=== PATIENT | female | born 1990 | race African-American/Black ===

== ENCOUNTER 2017-03-09 09:48 | Emergency (ER) | payer OTHER ==
--- NOTE | ~2017-03-09 | CT4 ---
[facility] A Service of [facility] RADIOLOGY TEXT RESULTS PATIENT: BRIANNA BLUE LOCATION: [place] : [birth year] UNIT #: [id number] AGE: [address]: Lulu Mcgraw APRN SEX: F ORDER DR: [id number] [id number] [facility]. [place], [place] [address] [id number] E MR#: [id number] Acc #: [id number] NAME: BRIANNA BLUE : 1990 SEX: F STUDY DATE/TIME: 03/09/2017 15:03 UNIT: [facility] ROOM: STUDY DESCRIPTION: CT Abd and Pelv Wo Cont Attending Physician: Lulu Mcgraw A.P.R.N. Ordering Physician: Ed Tomas Ortiz M.D. Primary Care Physician: No Primary Care Physician MEDICAL IMAGING REPORT This report is preliminary unless electronic signature is present EXAM CT abdomen and pelvis without contrast. Date: 03/09/2017. HISTORY Mid epigastric pain with nausea, vomiting and diarrhea since 03/08/2017. COMPARISON None. PROCEDURE 5 mm noncontrast axial images through the abdomen and pelvis. Enteric contrast was not administered. Sagittal and coronal reformed images were obtained. This CT exam was performed with one or more of the following radiation dose reduction techniques: automatic exposure control, adjustment of mA and/or kV according to patient size, and iterative reconstruction. FINDINGS Lung bases are clear. 1.2 cm gallstone present without pericholecystic inflammation or biliary ductal dilation. The noncontrast appearance of the liver, spleen, pancreas, adrenals and kidneys is within normal limits. No urinary tract stone or hydronephrosis is identified. The appendix is normal. Limited evaluation of the bowel due to lack of contrast but no focal bowel inflammation is seen. Pelvis findings: Urinary bladder, uterus and rectum are normal. No pelvic adenopathy or free fluid is identified. No acute osseous abnormalities. [facility] A Service of [facility] RADIOLOGY TEXT RESULTS PATIENT: BRIANNA BLUE LOCATION: [place] : [birth year] UNIT #: [id number] AGE: [address]: Lulu Mcgraw APRN SEX: F ORDER DR: IMPRESSION 1. No acute findings in the abdomen or pelvis. 2. Uncomplicated cholelithiasis. 3. No urinary tract stone or hydronephrosis. 4. Normal appendix. Dictated by... Bernadette Suggs M.D. THIS IS AN ELECTRONICALLY VERIFIED REPORT Bernadette Suggs M.D. at 03/10/2017 8:36 AM LLH/gz TD: 03/09/2017 16:25 JOB #: [id number] MEDICAL IMAGING REPORT Page 1 of 1 COPY
[~2017-03-09 09:48] MED LIST: BACTRIM DS TABL1 TA1 PO; BENADRYL25 MG PO; LACRI-LUBE NP OI1 UD OD; PREDNISONE5 M1 PO; ULTRAM PO; VALTREX PO; ZANTAC PO; ZANTAC150 MG PO
[2017-03-09 10:45] LABS: BASOPHIL% 0.4 % (0-2.5); EOSINOPHIL% 0.2 % (0.0-7.0); HEMATOCRIT 39.3 % (35.0-45.0); HEMOGLOBIN 12.5 gm/dL (12.0-16.0); LYMPHOCYTE# 1.4 X10e3 (1.0-3.5); LYMPHOCYTE% 15.5 % (17.0-45.0); MEAN CORPUSCULAR HEMOGLOBIN 27.5 PG (28-34); MEAN CORPUSCULAR HGB CONC 31.9 g/dL (30-36); MEAN PLATELET VOLUME 8.6 FL (6.5-11.5); MONOCYTE# 0.4 X10e3 (0-1.0); MONOCYTE% 4.8 % (3.0-12.0); NEUTROPHIL# 7.1 X10e3 (1.5-7.1); NEUTROPHIL% 79.1 % (40-75); PLATELET COUNT 268 X10e3 (140-420); RED BLOOD COUNT 4.57 X10e (3.90-5.30); RED CELL DISTRIBUTION WIDTH 14.1 % (11.0-15.5)
[2017-03-09 10:49] LABS: DIFF IND NO
[2017-03-09 11:17] LABS: ALBUMIN SERUM 3.6 g/dL (3.5-5.0); BILIRUBIN, DIRECT 0.1 mg/dL (0.0-0.2); BILIRUBIN,INDIRECT 0.1 mg/dL (0.0-0.9); BILIRUBIN,TOTAL 0.2 mg/dL (0.2-2.0); BUN/CREATININE RATIO 11.66; CALCIUM SERUM 8.7 mg/dL (8.4-10.2); CREATININE SERUM 0.6 mg/dL (0.6-1.4); GLOM FILT RATE Estimated 144.8 mL/min (>60); POTASSIUM 3.7 mmol/L (3.5-5.1); PROTEIN TOTAL SERUM 7.6 g/dL (6.0-8.3)
[2017-03-09 12:18] LABS: URINE SOURCE CLEAN CATCH
[2017-03-09 12:43] LABS: URINE APPEARANCE CLEAR; URINE BILIRUBIN NEG (NEG); URINE BLOOD NEG (NEG); URINE COLOR YELLOW; URINE GLUCOSE NEG (NEG); URINE KETONE TRACE (NEG); URINE LEUKOCYTE ESTERASE NEG (NEG); URINE NITRATE NEG (NEG); URINE PH 7.5 (5-8); URINE PROTEIN 1+ (NEG); URINE SPECIFIC GRAVITY 1.029 (1.003-1.035)
[2017-03-09 12:47] LABS: URINE BACTERIA AUWI NEG (NEGATIVE); URINE SQUAMOUS EPITHELIAL CELL OCC /[HPF]; UWBCS1 AUWI 0-2 (0-5)
[2017-03-09 12:48] LABS: CULTURE INDICATED? NO
== END 2017-03-09 16:50 | disposition home or self-care (01) ==
LOC: CED 09:48
PROVIDERS: Nurse Practitioner
DX: K80.80 Other cholelithiasis without obstruction (principal); R19.7 Diarrhea, unspecified; R42 Dizziness and giddiness; I10 Essential (primary) hypertension; Z79.899 Other long term (current) drug therapy
CPT/HCPCS: 36415; 74176; 80048; 80076; 81003; 82150; 83690; 84703; 85025; 96361; 96374; 96375; 96376; 99284; J2405

== ENCOUNTER 2017-03-10 22:43 | Emergency (ER) | payer OTHER ==
--- NOTE | ~2017-03-10 | CR63 ---
[facility] A Service of [facility] RADIOLOGY TEXT RESULTS PATIENT: BRIANNA BLUE LOCATION: [facility] : [birth year] UNIT #: [id number] AGE: [address]: Zacarias Price DO SEX: F ORDER DR: [id number] [facility] [address] [place], [place] [address] [id number] E MR#: [id number] Acc #: [id number] NAME: BRIANNA BLUE : 1990 SEX: F STUDY DATE/TIME: 03/11/2017 0:42 UNIT: [facility] ROOM: STUDY DESCRIPTION: CR Chest 2 View Attending Physician: Zacarias Price D.O. Ordering Physician: Zacarias Price D.O. MEDICAL IMAGING REPORT This report is preliminary unless electronic signature is present EXAM Chest x-ray, 03/11. INDICATIONS Headache, vomiting, dizziness, and blurred vision for the last 2 days. COMPARISON 09/21/2016 FINDINGS PA and lateral examination of the chest upright shows a good expansion of the parenchyma with a normal distribution of the pulmonary vascularity. There is no indication of congestion, effusion, infiltrate, tumor, or nodular density. The pleural reflections and diaphragmatic contours are normal. The cardiac silhouette and mediastinal anatomy is within normal limits. IMPRESSION Normal chest. Dictated by... Shalom Hope Jr., M.D. THIS IS AN ELECTRONICALLY VERIFIED REPORT Shalom Hoep Jr., M.D. at 03/11/2017 11:25 AM LIZETH/sultana TD: 03/11/2017 09:28 JOB #: [id number] MEDICAL IMAGING REPORT Page 1 of 1 COPY
--- NOTE | ~2017-03-10 | MR18 ---
[facility] A Service of [facility] RADIOLOGY TEXT RESULTS PATIENT: BRIANNA BLUE LOCATION: [place] : [birth year] UNIT #: [id number] AGE: [address]: Zacarias Price DO SEX: F ORDER DR: [id number] [facility] [address] [place], [place] [address] [id number] E MR#: [id number] Acc #: [id number] NAME: BRIANNA BLUE : 1990 SEX: F STUDY DATE/TIME: 03/11/2017 2:15 UNIT: [facility] ROOM: STUDY DESCRIPTION: MR Brain Wo Contrast Attending Physician: Zacarias Price D.O. Ordering Physician: Zacarias Price D.O. MRI CENTER REPORT This report is preliminary unless electronic signature is present. EXAM MR brain, 03/11 INDICATION Dizziness and weakness that started Tuesday of this week with blurred vision. History of Romero's palsy. TECHNIQUE Multisequence multiplanar imaging was performed through the brain without contrast in a high field strength magnet. COMPARISON 07/07/2016 FINDINGS Diffusion images show no evidence of acute or subacute infarct. Ventricular size and configuration remain normal. Signal in the white matter is normal. No masses are identified on this noncontrast study. No evidence of hemorrhage. Major intracranial flow voids are maintained. Craniovertebral junction is normal. IMPRESSION Normal noncontrast brain MRI. No change from prior. Dictated by... Shalom Hope Jr., M.D. THIS IS AN ELECTRONICALLY VERIFIED REPORT Shalom Hope Jr., M.D. at 03/11/2017 11:28 AM LIZETH/felisha TD: 03/11/2017 10:02 JOB #: [id number] [facility] A Service of [facility] RADIOLOGY TEXT RESULTS PATIENT: BRIANNA BLUE LOCATION: [place] : [birth year] UNIT #: [id number] AGE: [address]: Zacarias Price DO SEX: F ORDER DR: MRI CENTER REPORT Page 1 of 1 COPY
--- NOTE | ~2017-03-10 | MR122 ---
[facility] A Service of [facility] RADIOLOGY TEXT RESULTS PATIENT: BRIANNA BLUE LOCATION: [place] : [birth year] UNIT #: [id number] AGE: [address]: Zacarias Price DO SEX: F ORDER DR: [id number] [facility] [address] [place], [place] [address] [id number] E MR#: [id number] Acc #: [id number] NAME: BRIANNA BLUE : 1990 SEX: F STUDY DATE/TIME: 03/11/2017 2:41 UNIT: [facility] ROOM: STUDY DESCRIPTION: MR MRA Head Wo Contrast Attending Physician: Zacarias Price D.O. Ordering Physician: Zacarias Price D.O. MRI CENTER REPORT This report is preliminary unless electronic signature is present. EXAM MRA brain, 03/11 HISTORY Dizziness and weakness that started Tuesday of this week with some blurred vision. History of Romero's palsy. TECHNIQUE Noncontrast 3-D rqeo-ks-kasfrs images were obtained through the brain. MIP reconstructed images of the arterial system were obtained. COMPARISON CTA of the brain, 07/07/2016 FINDINGS Major vessels of the [place] are widely patent. There is no evidence of vessel stenosis or vessel cutoff. No aneurysm is identified. There is no vascular malformation. IMPRESSION Negative intracranial MRA. Dictated by... Shalom Hope Jr., M.D. THIS IS AN ELECTRONICALLY VERIFIED REPORT Shalom Hope Jr., M.D. at 03/11/2017 11:28 AM LIZETH/felisha TD: 03/11/2017 10:04 JOB #: [id number] [facility] A Service of [facility] RADIOLOGY TEXT RESULTS PATIENT: BRIANNA BLUE LOCATION: [place] : [birth year] UNIT #: [id number] AGE: [address]: Hottman,Zacarias M DO SEX: F ORDER DR: MRI CENTER REPORT Page 1 of 1 COPY
--- NOTE | ~2017-03-10 | MR133 ---
[facility] A Service of [facility] RADIOLOGY TEXT RESULTS PATIENT: BRIANNA BLUE LOCATION: [place] : [birth year] UNIT #: [id number] AGE: [address]: Zacarias Price DO SEX: F ORDER DR: [id number] [facility] [address] [place], [place] [address] [id number] E MR#: [id number] Acc #: [id number] NAME: BRIANNA BLUE : 1990 SEX: F STUDY DATE/TIME: 03/11/2017 2:49 UNIT: [facility] ROOM: STUDY DESCRIPTION: MR MRA Neck WWo Contrast Attending Physician: Zacarias Price D.O. Ordering Physician: Zacarias Price D.O. MRI CENTER REPORT This report is preliminary unless electronic signature is present. EXAM MRA of the neck with without contrast 03/11 INDICATIONS Dizziness and weakness since Tuesday of this week. History of [place] palsy. TECHNIQUE Ilyi-uj-yaefdn imaging was obtained through the neck before and after the IV administration of 20 mL of MultiHance contrast. Comparison made with the neck CTA from 07/07/2016. FINDINGS The vertebral arteries are codominant and widely patent. No evidence of plaque disease in the carotid bifurcations. No stenosis in the neck by NASCET criteria. No dissection. The great vessel origins from the arch are unremarkable. IMPRESSION Normal MRA of the neck. Dictated by... Shalom Hope Jr., M.D. THIS IS AN ELECTRONICALLY VERIFIED REPORT Shalom Hope Jr., M.D. at 03/11/2017 11:28 AM SIMONEK/debbie TD: 03/11/2017 10:04 JOB #: [id number] [facility] A Service [facility] RADIOLOGY TEXT RESULTS PATIENT: BRIANNA BLUE LOCATION: [place] : [birth year] UNIT #: [id number] AGE: [address]: Zacarias Price DO SEX: F ORDER DR: MRI CENTER REPORT Page 1 of 1 COPY
[2017-03-11 00:30] LABS: URINE SOURCE CLEAN CATCH
[2017-03-11 00:39] LABS: URINE APPEARANCE CLEAR; URINE BILIRUBIN NEG (NEG); URINE BLOOD NEG (NEG); URINE COLOR YELLOW; URINE GLUCOSE NEG (NEG); URINE KETONE NEG (NEG); URINE LEUKOCYTE ESTERASE NEG (NEG); URINE NITRATE NEG (NEG); URINE PH 6.5 (5-8); URINE PROTEIN NEG (NEG); URINE SPECIFIC GRAVITY 1.015 (1.003-1.035)
[2017-03-11 00:42] LABS: CULTURE INDICATED? NO
[2017-03-11 01:08] LABS: BASOPHIL# 0.1 X10e3 (0-0.3); BASOPHIL% 0.5 % (0-2.5); EOSINOPHIL# 0.1 X10e3 (0-0.7); EOSINOPHIL% 0.6 % (0.0-7.0); HEMATOCRIT 39.5 % (35.0-45.0); HEMOGLOBIN 12.5 gm/dL (12.0-16.0); LYMPHOCYTE# 3.1 X10e3 (1.0-3.5); LYMPHOCYTE% 31.7 % (17.0-45.0); MEAN CELL VOLUME 86.4 FL (83-96); MEAN CORPUSCULAR HEMOGLOBIN 27.4 PG (28-34); MEAN CORPUSCULAR HGB CONC 31.8 g/dL (30-36); MONOCYTE% 10.4 % (3.0-12.0); NEUTROPHIL# 5.5 X10e3 (1.5-7.1); NEUTROPHIL% 56.8 % (40-75); PLATELET COUNT 262 X10e3 (140-420); RED BLOOD COUNT 4.57 X10e (3.90-5.30); RED CELL DISTRIBUTION WIDTH 13.9 % (11.0-15.5); WHITE BLOOD COUNT 9.7 X10e3 (4.0-10.5)
[2017-03-11 01:11] LABS: DIFF IND NO
[2017-03-11 01:17] LABS: POC - CKMB <1.0 ng/mL (0.0-7.9); POC - TROPONIN <0.05 ng/mL (<=0.05)
[2017-03-11 01:42] LABS: ALBUMIN SERUM 3.4 g/dL (3.5-5.0); BILIRUBIN, DIRECT 0.1 mg/dL (0.0-0.2); BILIRUBIN,INDIRECT 0.4 mg/dL (0.0-0.9); BILIRUBIN,TOTAL 0.5 mg/dL (0.2-2.0); CALCIUM SERUM 8.8 mg/dL (8.4-10.2); CREATININE SERUM 0.8 mg/dL (0.6-1.4); GLOM FILT RATE Estimated 117.2 mL/min (>60); POTASSIUM 3.3 mmol/L (3.5-5.1); PROTEIN TOTAL SERUM 7.5 g/dL (6.0-8.3)
== END 2017-03-11 04:45 | disposition home or self-care (01) ==
LOC: CED 22:43
PROVIDERS: Emergency Medicine
DX: R42 Dizziness and giddiness (principal); R11.2 Nausea with vomiting, unspecified
CPT/HCPCS: 36415; 70544; 70549; 70551; 71020; 80048; 80076; 81003; 82553; 83690; 84484; 84703; 85025; 96361; 96374; 96375; 99284; A9577; J1100; J2405